=== PATIENT | female | born 1990 | race Caucasian/White ===

== ENCOUNTER 2018-06-18 15:42 | Inpatient (IN) | payer BC, OTHER ==
[2018-06-18] MEDS ORDERED: OXYTOCIN/DEXTROSE 5%-WATER 30 UNITS/500 ML BAG IV ONE ×2 (15:48→17:34)
[2018-06-18] MEDS ORDERED: ONDANSETRON HCL/PF 2 MG/ML VIAL IV PRN (15:48)
[2018-06-18] MEDS ORDERED: RINGER'S SOLUTION,LACTATED 1,000 ML IV ONE ×2 (15:48→16:10)
[2018-06-18] MEDS ORDERED: DEXTROSE 5%-LACTATED RINGERS 1,000 ML IV PRN (15:48)
[2018-06-18] MEDS ORDERED: LIDOCAINE HCL 50 ML VIAL ONE (16:11)
--- NOTE | 2018-06-18 16:31 | HP ---
Chief Complaint - Chief Complaint Date of Service: 06/18/18 Time of Service: 16:25 Chief Complaint: LOF, contractions History of Present Illness: 28 yo at 37 1/7 weeks presents to L&D in labor from office. Patient thought she had SROM, but was noted to be 5/100/-2 with a BBOW. This complicated by anemia, h/o fast labors (3 and 1 hr), h/o melanoma, h/o migraines. Rh positive Rubella immune GBS negative. Medical History (Last Reviewed 06/18/18 @ 16:27 by Eddie Plascencia DO) Anemia Onset Date: Unknown As a teenager. 04/01/18-w/. Body piercing Migraine without aura Tattoos wears glasses or contacts Malignant melanoma of skin of other and unspecified parts of face Onset Date: ~2015 x2 areas Surgical History: Surgical History (Last Reviewed 05/15/18 @ 08:57 by Gildardo Maurer RN) No history of previous surgery Family History: Family History (Last Reviewed 05/15/18 @ 08:57 by Gildardo Maurer RN) Brother Alive and well Brother Muscular dystrophy Brother Schizophrenia Father Cancer Lung & bone cancer Grandfather Heart disease Grandfather Cancer Liver and colon cancer Grandmother Heart disease Hyperlipemia Mother Thyroid disease Diabetes Hypercholesterolemia Social History: Preferred Language Georgian Smoking Status Never smoker Abuse History No History of abuse Psych History No pertinent hx (Last Updated 06/12/18 @ 10:21 by Maricarmen Mcclendon MD) No Social History Section defined Review Of Systems (GEN) - Review of Systems Generalized/Overall Review: Present: No Symptoms Reported EENTM: Present: No Symptoms Reported Respiratory: Present: No Symptoms Reported Cardiac: Present: No Symptoms Reported Abdominal: Present: Other - contractions Genitourinary: Present: Other - increased watery vaginal discharge Musculoskeletal: Present: No Symptoms Reported Neurological: Present: No Symptoms Reported Skin: Present: No Symptoms Reported Endocrine: Present: No Symptoms Reported Allergies/Adverse Reactions: Allergies Allergy/AdvReac Type Severity Reaction Status Date / Time No Known Allergies Allergy Verified 06/18/18 15:02 Home Medications: HOME MEDICATIONS Vit No.128/Iron/FA [Eql Vitamin Tablet] 1 ea PO DAILY 07/18/14 [Last Taken 01/01/15 09:00] Ferrous Sulfate 325 mg PO DAILY 06/18/18 [Last Taken 06/17/18 08:00] Exam - Exam Vital Signs: Vital Signs - Last Taken Temp 36.8 C 06/18/18 16:20 Pulse 123 H 06/18/18 16:20 Resp 20 06/18/18 16:20 BP 129/73 06/18/18 16:20 Pulse Ox 98 06/18/18 16:20 Constitutional: Present: Alert, Oriented x3, Cooperative, Mild distress ENT Exam: Present: hearing grossly normal Breasts: Present: Exam deferred Respiratory: Present: lungs clear, no respiratory distress Cardiovascular/Chest: Present: regular rate, rhythm, no edema Abdomen: Present: soft, nontender, nondistended, no rebound tenderness, other - gravid /Rectal: Present: Other - Cervix 5/100/-2 Extremity: Present: no pedal edema, no calf tenderness Skin Exam: Present: normal color, warm/dry, no cyanosis Neurologic: Present: normal mood/affect, oriented x 3 Appearance: Present: appropriate appearance, appropriate insight Eye contact: Present: cooperative, good eye contact Thoughts: Present: normal thought pattern Assessment/Plan - Assessment/Plan (1) Labor established Assessment: Admit for routine labor management. Problem: Acute
--- NOTE | 2018-06-18 16:45 | PN ---
Progess Note - Interim Date: 06/18/18 Time: 16:42 Narrative: 06/18/18 16:42 Patient rating her contractions 5-10 Vital signs stable. FHT:150 baseline, minimum variability over the past 20 minutes with occasional variable deceleration Contractions q 2-3 min Cervix: 8/100/-2, AROM-clear Impression: Intrauterine at 37-1/7 weeks in labor Plan: Anticipate normal spontaneous vaginal delivery soon
[2018-06-18] MEDS ORDERED: BISACODYL 10 MG SUPP.RECT RC PRN (17:34)
[2018-06-18] MEDS ORDERED: GLYCERIN/WITCH HAZEL LEAF 40 APPL BOX TP PRN (17:34)
[2018-06-18] MEDS ORDERED: SENNOSIDES 8.6 MG TABLET PO PRN (17:34)
[2018-06-18] MEDS ORDERED: HYDROCORTISONE 30 APPL TUBE TP PRN (17:34)
[2018-06-18] MEDS ORDERED: BENZOCAINE/MENTHOL 81 SPRAY CAN TP PRN (17:34)
[2018-06-18] MEDS ORDERED: oxyCODONE HCL/ACETAMINOPHEN 1 TAB TABLET PO PRN ×2 (17:34)
--- NOTE | 2018-06-18 17:39 | OR ---
Operative Report - Dictated Report Narrative: Spontaneous vaginal delivery of a vigorously crying viable male at 1709 on 06/18/2018 with Apgars 9 and 9, weighing 3299 g in ORACIO position. Cord clamping delayed approximately 1 minute Placenta delivered complete, intact, with three vessel cord Estimated blood loss: less than 50 ml Anesthesia: epidural Lacerations: 1 cm first-degree laceration of lower clitoral goodson with no repair Note: A popping sound was heard as the right anterior shoulder cleared the pubic bone. No palpable abnormalities were noted.
[2018-06-18] MEDS: IBUPROFEN 800 MG TABLET PO PRN (19:02)
[2018-06-18] MEDS: DOCUSATE SODIUM 100 MG CAPSULE PO SCH (21:09)
[2018-06-19] MEDS: IBUPROFEN 800 MG TABLET PO PRN ×3 (02:18→19:15)
--- NOTE | 2018-06-19 09:10 | PN ---
Subjective - Date and Time Seen Date: 06/19/18 Time: 09:10 Objective - Vitals Vitals: Last Vital Signs Temp 36.3 C 06/19/18 07:36 Pulse 101 H 06/19/18 07:36 Resp 18 06/19/18 07:36 BP 115/69 06/19/18 07:36 Pulse Ox 98 06/19/18 07:36 Patient denies complaints. Bottle feeding Lochia wnl Abdomen - soft, nontender Uterus - firm, at umbilicus - 1 No calf tenderness Impression: day #1 - s/p spontaneous vaginal delivery. Plan: Continue routine care Assessment/Plan - Problems/Diagnosis (1) Labor established Problem: Acute
--- NOTE | 2018-06-19 09:11 | PN ---
Progess Note - Interim Date: 06/19/18 Time: 09:10 History for MU Definition: * The number of deliveries resulting in a live the patient experienced prior to current hospitalization * The previous delivery of live twins or any live multiple gestation is considered one live event. *If primagravida or nulliparous is documented select zero for the number of previous live births. Live Events: 2
[2018-06-19] MEDS: DOCUSATE SODIUM 100 MG CAPSULE PO SCH ×2 (09:39→22:08)
[2018-06-20] MEDS: IBUPROFEN 800 MG TABLET PO PRN (03:48)
[2018-06-20 08:34] VITALS: BP 131/68
[2018-06-20] MEDS: DOCUSATE SODIUM 100 MG CAPSULE PO SCH (08:44)
--- NOTE | 2018-06-20 10:24 | PN ---
Subjective - Date and Time Seen Date: 06/20/18 Time: 10:23 Objective - Vitals Vitals: Last Vital Signs Temp 36.6 C 06/20/18 08:23 Pulse 115 H 06/20/18 08:23 Resp 18 06/20/18 08:23 BP 131/68 06/20/18 08:23 Pulse Ox 100 06/20/18 08:23 Patient denies complaints. Lochia wnl Abdomen - soft, nontender Uterus - firm, at umbilicus - 2 No calf tenderness Impression: day #2 - s/p spontaneous vaginal delivery. Baby staying for further evaluation, on antibiotics until cultures come back. Plan: Routine discharge instructions. Board for baby. Assessment/Plan - Problems/Diagnosis (1) Labor established Problem: Acute
== END 2018-06-20 15:30 | disposition home or self-care (01) | DRG 807 ==
LOC: OB 15:42
PROVIDERS: ADMIT Obstetrics & Gynecology; ATTEND Obstetrics & Gynecology
CPT/HCPCS: 59025

== ENCOUNTER 2020-02-28 19:27 | Inpatient (IN) ==
[2020-02-28] MEDS: RINGER'S SOLUTION,LACTATED 1,000 ML IV ONE ×2 (20:45→21:50)
[2020-02-28] MEDS ORDERED: BUPIVACAINE HCL/0.9 % NACL/PF 250 ML EP PRN (21:06)
[2020-02-28] MEDS ORDERED: NALOXONE HCL 1 MG/1 ML SYRG IV PRN (21:06)
[2020-02-28] MEDS ORDERED: ONDANSETRON HCL/PF 2 MG/ML VIAL IV PRN (21:06)
[2020-02-28] MEDS ORDERED: BUPIVACAINE HCL/PF 30 ML VIAL EP SCH (21:15)
--- NOTE | 2020-02-28 21:26 | HP ---
Chief Complaint - Chief Complaint Date of Service: 02/28/20 Time of Service: 21:13 Chief Complaint: painful frequent contractions History of Present Illness: 29 yo at 37 weeks presents to L&D complaining of contractions of increasing frequency and intensity. This complicated by anemia and precipituous delivery x 3. Rh positive Rubella immune GBS negative Medical History (Last Reviewed 02/28/20 @ 21:24 by Eddie Plascencia DO) History of migraine headaches (Inactive) Anemia Onset Date: Unknown As a teenager. 04/01/18-w/. Body piercing Migraine without aura Tattoos wears glasses or contacts Malignant melanoma of skin of other and unspecified parts of face Onset Date: ~2015 x2 areas Surgical History: Surgical History (Last Reviewed 02/28/20 @ 21:24 by Eddie Plascencia DO) No history of previous surgery Family History: Family History (Last Reviewed 02/28/20 @ 21:24 by Eddie Plascencia DO) Brother Alive and well Brother Muscular dystrophy Brother Schizophrenia Father Cancer Lung & bone cancer Grandfather Heart disease Grandfather Cancer Liver and colon cancer Grandmother Heart disease Hyperlipemia Mother Thyroid disease Diabetes Hypercholesterolemia Social History: (Last Reviewed 02/28/20 @ 21:24 by Eddie Plascencia DO) Social History: long-term: No Marital status: household members: significant other, children number of children: 2 current occupational status: employed, unemployed current occupation: [employer]ician current occupational exposures/hazards: No Highest education level completed: Associate degree: academi Service: No Tobacco: Smoking Status: Never smoker Alcohol: alcohol intake: current alcohol intake frequency: a few times a month details: No alcohol since + UPT 07/25/19 Substance Use: substance use type: does not use Dietary Habits: caffeine: Yes caffeine comment: 1 daily Type: coffee, tea, carbonated beverages Kelly/Amish: agree to transfusion: Yes Review Of Systems (GEN) - Review of Systems Generalized/Overall Review: Present: No Symptoms Reported EENTM: Present: No Symptoms Reported Respiratory: Present: No Symptoms Reported Cardiac: Present: No Symptoms Reported Abdominal: Present: Diarrhea, Other - contractions Genitourinary: Present: Other - vaginal pressure Musculoskeletal: Present: No Symptoms Reported Neurological: Present: No Symptoms Reported Skin: Present: No Symptoms Reported Endocrine: Present: No Symptoms Reported Allergies/Adverse Reactions: Allergies Allergy/AdvReac Type Severity Reaction Status Date / Time No Known Allergies Allergy Verified 02/28/20 19:37 Home Medications: HOME MEDICATIONS ferrous sulfate 325 mg (65 mg iron) tablet 325 mg PO DAILY 09/10/19 [Last Taken 02/28/20] Vits96/Iron Fum/Folic [ S] 1 tab PO DAILY 02/23/20 [Last Taken 02/28/20] Exam - Exam Vital Signs: Vital Signs - Last Taken Temp 36.6 C 02/28/20 20:06 Pulse 99 02/28/20 20:06 Resp 18 02/28/20 20:06 BP 106/74 02/28/20 20:06 Pulse Ox 98 02/28/20 20:06 Constitutional: Present: Alert, Oriented x3, Cooperative, Mild distress ENT Exam: Present: hearing grossly normal Neck: Present: trachea midline. Absent: thyromegaly Breasts: Present: Exam deferred Respiratory: Present: lungs clear Cardiovascular/Chest: Present: normal peripheral pulses, regular rate, rhythm Abdomen: Present: soft, nontender, no rebound tenderness /Rectal: Present: Other - Cervix changed from 5/90/-2 to 7-8/95/-2 Extremity: Present: no pedal edema, no calf tenderness Skin Exam: Present: normal color, warm/dry, no cyanosis Neurologic: Present: alert, normal mood/affect, oriented x 3 Appearance: Present: appropriate appearance, appropriate insight Eye contact: Present: cooperative, good eye contact, normal speech Thoughts: Present: normal thought pattern, normal mood /affect Assessment/Plan - Assessment/Plan (1) Labor established Assessment: Admit for routine management of labor. Epidural and pitocin PRN. Problem: Acute (2) History of precipitous delivery Problem: Acute (3) Anemia Problem: Acute Qualifiers: Anemia type: iron deficiency Iron deficiency anemia type: inadequate dietary iron intake Qualified Code(s): D50.8 - Other iron deficiency anemias
[2020-02-28] MEDS ORDERED: ONDANSETRON 4 MG TAB.RAPDIS PO PRN (21:44)
[2020-02-28] MEDS ORDERED: LIDOCAINE HCL 50 ML VIAL PERI PRN (21:44)
--- NOTE | 2020-02-28 22:11 | ANES ---
Anesthesia Pre Procedure Eval Vitals/Labs: Last Vital Signs Temp 36.6 C 02/28/20 20:06 Pulse 99 02/28/20 20:06 Resp 18 02/28/20 20:06 BP 106/74 02/28/20 20:06 Pulse Ox 98 02/28/20 20:06 HOME MEDICATIONS ferrous sulfate 325 mg (65 mg iron) tablet 325 mg PO DAILY 09/10/19 [Last Taken 02/28/20] Vits96/Iron Fum/Folic [ S] 1 tab PO DAILY 02/23/20 [Last Taken 02/28/20] Allergies/Adverse Reactions: Allergies Allergy/AdvReac Type Severity Reaction Status Date / Time No Known Allergies Allergy Verified 02/28/20 19:37 - Planned Procedure Planned Procedure: Labor Epidural Medication List Reviewed:: Yes Allergies Verified: Yes Medical History (Last Reviewed 02/28/20 @ 22:10 by William Garcia CRNA) History of migraine headaches (Inactive) Anemia Onset Date: Unknown As a teenager. 04/01/18-w/. Body piercing Migraine without aura Tattoos wears glasses or contacts Malignant melanoma of skin of other and unspecified parts of face Onset Date: ~2015 x2 areas Surgical History (Last Reviewed 02/28/20 @ 21:24 by Eddie Plascencia DO) No history of previous surgery Family History (Last Reviewed 02/28/20 @ 21:24 by Eddie Plascencia DO) Brother Alive and well Brother Muscular dystrophy Brother Schizophrenia Father Cancer Lung & bone cancer Grandfather Heart disease Grandfather Cancer Liver and colon cancer Grandmother Heart disease Hyperlipemia Mother Thyroid disease Diabetes Hypercholesterolemia - Anesthesia Assessment and Plan ASA Class: PS, II Anesthesia Type Plan: Epidural
--- NOTE | 2020-02-28 22:29 | ANES ---
Anesthesia Procedure Note Procedure Note: ANESTHESIA PROCEDURE NOTE Date of Procedure: 02/28/2020. Time of procedure: 2209. Performed by: William Garcia CRNA Target Setter: None. Preprocedure diagnosis: Active labor. Post procedure diagnosis: Same. Procedure: Insertion of labor epidural. Indications: The patient is a 29-year-old female in active labor requesting labor epidural for pain management. Findings: See below. Details of the procedure: The patient was placed in a sitting position. DuraPrep as well as Betadine swabs X3 was applied to the patient's back. Patient was then draped in a sterile fashion. Lidocaine 1% was infiltrated to the skin and subcutaneous tissues at the level of the L3-4 interspace. The epidural space was identified using a 18-gauge Tuohy needle with [id number] technique. Epidural catheter was inserted to a depth of 9 centimeters at skin. Negative test dose was elicited using 3 mL of 1.5% preservative-free lidocaine plus epinephrine 1 200,000. The epidural catheter was then taped and secured in place. A loading dose of 8 mL of 0.25% preservative-free bupivacaine was administered to the epidural catheter after negative aspiration for blood and CSF. EBL: Minimal. Fluids: N/A. Specimen: N/A. Post procedure condition: The patient tolerated the procedure well. No complications were noted. Thank you for this consultation. William Garcia CRNA
--- NOTE | 2020-02-28 22:29 | ANES ---
Post Anesthesia Assessment - Vital Signs Vitals: Last Vital Signs Temp 36.6 C 02/28/20 20:06 Pulse 103 H 02/28/20 22:28 Resp 18 02/28/20 22:28 BP 118/78 02/28/20 22:28 Pulse Ox 99 02/28/20 22:28 Airway Patency: Normal - Mental Status Level Of Consciousness: Awake - N/V Assessment Nausea/Vomiting Presence: None Dehydration:: No
[2020-02-28] MEDS ORDERED: OXYTOCIN/0.9 % SODIUM CHLORIDE 30 UNITS/500 ML BAG IV ONE (22:42)
[2020-02-29] MEDS ORDERED: oxyCODONE HCL/ACETAMINOPHEN 1 TAB TABLET PO PRN (00:04)
[2020-02-29] MEDS ORDERED: SENNOSIDES 8.6 MG TABLET PO PRN (00:04)
[2020-02-29] MEDS ORDERED: BENZOCAINE/MENTHOL 81 SPRAY CAN TP PRN (00:04)
[2020-02-29] MEDS ORDERED: OXYTOCIN/0.9 % SODIUM CHLORIDE 30 UNITS/500 ML BAG IV ONE (00:04)
[2020-02-29] MEDS ORDERED: HYDROCORTISONE 30 APPL TUBE TP PRN (00:04)
[2020-02-29] MEDS ORDERED: IBUPROFEN 800 MG TABLET PO PRN (00:04)
[2020-02-29] MEDS ORDERED: BISACODYL 10 MG SUPP.RECT RC PRN (00:04)
[2020-02-29] MEDS ORDERED: GLYCERIN/WITCH HAZEL LEAF 40 APPL BOX TP PRN (00:04)
--- NOTE | 2020-02-29 00:09 | OR ---
Operative Report - Dictated Report Narrative: Spontaneous vaginal delivery of vigorously crying male at 2335 on 02/28/2020 with Apgars 8 and 9 weighing 3023 g in ORACIO position. Cord clamping delayed approximately 1 minute Placenta delivered complete, intact, with three vessel cord Estimated blood loss: Less than 50 ml Anesthesia: Epidural Lacerations: None History for MU History for MU Definition: * The number of deliveries resulting in a live the patient experienced prior to current hospitalization * The previous delivery of live twins or any live multiple gestation is considered one live event. *If primagravida or nulliparous is documented select zero for the number of previous live births. Live Events: Live Events: 3
[2020-02-29] MEDS: IBUPROFEN 800 MG TABLET PO PRN ×3 (05:00→18:44)
--- NOTE | 2020-02-29 08:40 | PN ---
Subjective - Date and Time Seen Date: 02/29/20 Time: 08:39 Objective - Vitals Vitals: Last Vital Signs Temp 35.6 C L 02/29/20 07:06 Pulse 64 02/29/20 07:06 Resp 18 02/29/20 07:06 BP 126/80 02/29/20 07:06 Pulse Ox 98 02/29/20 07:06 Patient denies complaints. Breast-feeding Lochia wnl abdomen - soft, nontender Uterus -firm, at umbilicus - 1 No calf tenderness Impression: day #1 - s/p spontaneous vaginal delivery. Plan: Continue routine care Assessment/Plan - Problems/Diagnosis (1) Labor established Problem: Acute (2) History of precipitous delivery Problem: Acute (3) Anemia Problem: Acute Qualifiers: Anemia type: iron deficiency Iron deficiency anemia type: inadequate dietary iron intake Qualified Code(s): D50.8 - Other iron deficiency anemias
[2020-02-29] MEDS ORDERED: PRENATAL VITS96/IRON FUM/FOLIC 1 TAB TABLET PO SCH (09:00)
[2020-02-29] MEDS ORDERED: FERROUS SULFATE 325 MG TABLET PO SCH (09:00)
[2020-02-29] MEDS: DOCUSATE SODIUM 100 MG CAPSULE PO SCH ×2 (10:35→21:12)
[2020-03-01] MEDS: IBUPROFEN 800 MG TABLET PO PRN (07:24)
[2020-03-01 07:44] VITALS: BP 124/69
--- NOTE | 2020-03-01 13:12 | PN ---
Subjective - Date and Time Seen Date: 03/01/20 Time: 08:50 Objective - Vitals Vitals: Last Vital Signs Temp 36.7 C 03/01/20 07:41 Pulse 83 03/01/20 07:41 Resp 18 03/01/20 07:41 BP 124/69 03/01/20 07:41 Pulse Ox 98 03/01/20 07:41 Patient denies complaints. Bottlefeeding Lochia wnl abdomen - soft, nontender Uterus -firm, at umbilicus - 2 No calf tenderness Impression: day #2 - s/p spontaneous vaginal delivery. Plan: Routine discharge instructions Assessment/Plan - Problems/Diagnosis (1) Labor established Problem: Acute (2) History of precipitous delivery Problem: Acute (3) Anemia Problem: Acute Qualifiers: Anemia type: iron deficiency Iron deficiency anemia type: inadequate dietary iron intake Qualified Code(s): D50.8 - Other iron deficiency anemias
== END 2020-03-01 10:05 | disposition home or self-care (01) | DRG 807 ==
LOC: OB 19:27
PROVIDERS: ADMIT Obstetrics & Gynecology; ATTEND Obstetrics & Gynecology